=== PATIENT | female | born 1960 | race Caucasian/White ===

== ENCOUNTER 2018-04-17 15:46 | Emergency (ER) | payer MEDICARE ==
[~2018-04-17] VITALS: Ht 160 cm; Wt 75.0 kg
[2018-04-17 16:01] VITALS: BP 106/44
== END 2018-04-17 19:01 | disposition home or self-care (01) ==
LOC: ER 15:46
DX: T81.49XA Infection following a procedure, other surgical site, initial encounter (principal); L03.221 Cellulitis of neck; Y83.8 Other surgical procedures as the cause of abnormal reaction of the patient, or of later complication, without mention of misadventure at the time of the procedure; Y92.89 Other specified places as the place of occurrence of the external cause; E23.2 Diabetes insipidus; E78.00 Pure hypercholesterolemia, unspecified; R62.50 Unspecified lack of expected normal physiological development in childhood
CPT/HCPCS: 99283